=== PATIENT | female | born 1990 | race Caucasian/White ===

== ENCOUNTER 2023-02-15 23:42 | Emergency (ER) | payer OTHER ==
[~2023-02-15] VITALS: Ht 170.2 cm; Wt 63.5 kg
[2023-02-16 00:10] VITALS: BP_SYST 101; PULSE 68; RESP 17; TEMP 98.7; O2SAT 98
[2023-02-16 02:57] VITALS: BP_SYST 122; PULSE 74; RESP 18; TEMP 98.2; O2SAT 98
== END 2023-02-16 02:57 | disposition home or self-care (01) ==
LOC: SED 23:42
DX: M25.562 Pain in left knee (principal); Z88.1 Allergy status to other antibiotic agents; Z88.2 Allergy status to sulfonamides; Z79.899 Other long term (current) drug therapy
CPT/HCPCS: 73564; 99283